=== PATIENT | female | born 1975 | race Caucasian/White ===

== ENCOUNTER 2019-01-08 06:34 | Day surgery (SDC) | payer BC ==
[2019-01-08] MEDS ORDERED: BUPIVACAINE 0.5% (SDV) 30 ML INJ (06:51)
[2019-01-08] MEDS ORDERED: LIDOCAINE 2% (MDV) 20 ML INJ (06:51)
[2019-01-08] MEDS ORDERED: DEXAMETHASONE 4 MG/ML 1 ML INJ (06:51)
[2019-01-08] MEDS ORDERED: POLYMYXIN/BACITRACIN 1L IRRIG (06:52)
[2019-01-08] MEDS ORDERED: MIDAZOLAM 1 MG/ML 2 ML INJ (07:07)
[2019-01-08] MEDS ORDERED: DEXAMETHASONE 4 MG/ML 5 ML INJ (07:07)
[2019-01-08] MEDS ORDERED: PROPOFOL 100 ML (07:07)
[2019-01-08] MEDS ORDERED: FENTAnyl 50 MCG/ML VIAL (07:07)
[2019-01-08] MEDS ORDERED: ONDANSETRON 4 MG INJ (07:07)
[2019-01-08] MEDS ORDERED: LIDOCAINE 100 MG SYRINGE (07:07)
[2019-01-08] MEDS ORDERED: SUGAMMADEX SODIUM 200 MG/2 ML VIAL IV (07:08)
[2019-01-08] MEDS: DEXAMETHASONE 4 MG/ML 1 ML INJ INJ (07:22)
[2019-01-08] MEDS: BUPIVACAINE 0.5% (MPF) 30 ML INJ INJ (07:22)
[2019-01-08] MEDS: LIDOCAINE 2% (MDV) 20 ML INJ INJ (07:22)
[2019-01-08] MEDS ORDERED: HYDROmorphONE 1 MG/5 ML IV SYRINGE IV ×2 (07:30)
[2019-01-08] MEDS ORDERED: METOCLOPRAMIDE 10 MG INJ IV (07:30)
[2019-01-08] MEDS ORDERED: FENTAnyl 50 MCG/ML VIAL IV ×2 (07:30)
[2019-01-08] MEDS ORDERED: hydrALAzine 20 MG INJ IV (07:30)
[2019-01-08] MEDS ORDERED: MEPERIDINE 25 MG INJ IV (07:30)
[2019-01-08] MEDS ORDERED: LABETALOL HCL 20MG INJ IV (07:30)
[2019-01-08] MEDS ORDERED: ONDANSETRON 4 MG INJ IV (07:30)
[2019-01-08] MEDS ORDERED: KETOROLAC 30 MG INJ (08:26)
[2019-01-08] MEDS: HYDROCODONE/APAP (5/325) TAB PO (09:57)
== END 2019-01-08 10:07 | disposition home or self-care (01) ==
LOC: SDS 06:34
DX: M20.12 Hallux valgus (acquired), left foot (principal); M21.612 Bunion of left foot
CPT/HCPCS: 28296; 84703